=== PATIENT | male | born 1975 | race Caucasian/White ===

== ENCOUNTER 2018-02-28 10:44 | Emergency (ER) | payer BC ==
[~2018-02-28] VITALS: Ht 177.8 cm; Wt 83.9 kg
[2018-02-28] MEDS ORDERED: IBUPROFEN600 MG PO (11:09)
[2018-02-28] MEDS ORDERED: KEFLEX500 MG PO (11:09)
[2018-02-28] MEDS ORDERED: NORCO 5-325 TA1 EACH PO (11:09)
== END 2018-02-28 12:30 | disposition home or self-care (01) ==
LOC: ED 10:44
DX: S42.002A Fracture of unspecified part of left clavicle, initial encounter for closed fracture (principal); S81.012A Laceration without foreign body, left knee, initial encounter; Z23 Encounter for immunization; V29.9XXA Motorcycle rider (driver) (passenger) injured in unspecified traffic accident, initial encounter
CPT/HCPCS: 70450; 71046; 73000; 90471; 90715; 99284

== ENCOUNTER 2018-03-10 06:50 | Day surgery (SDC) | payer BC ==
[~2018-03-10] VITALS: Ht 177.8 cm; Wt 83.9 kg
[~2018-03-10 06:50] MED LIST: IBUPROFEN600 MG PO; KEFLEX500 MG PO; NORCO 5-325 TA1 EACH PO
[2018-03-10] MEDS ORDERED: NORCO 5-325 TA1 EACH PO (07:31)
[2018-03-10] MEDS ORDERED: SENNA LAX8.6 MG PO (10:18)
[2018-03-10] MEDS ORDERED: OXYCODONE HCL5 MG PO (10:18)
[2018-03-10] MEDS ORDERED: NEURONTIN300 MG PO (10:18)
--- NOTE | 2018-03-10 11:25 | NUR ---
03/10/18 1125 Emilie Morrison 1019- PT ARRIVES TO PACU ON 10L VIA NC. OXYGEN SAT 100% ON THIS. PT ALSO SNORING. JAW THRUST PERFORMED AND SNORING CLEARED. 1021- JAW THRUST STOPPED. PILLOW ROLLED BEHIND PT'S HEAD AND HEAD REPOSITIONED, SNORING REMAINED CLEAR. OXYGEN SAT REMAINS 100%. 1023- PT MORE AROUSABLE, ANSWERING QUESTIONS. PT IS ABLE TO MOVE ALL FINGERS TO HIS LEFT HAND. 1030- PT IS REPORTING DEEP PAIN TO HIS LEFT SHOULDER. KEEPS REPORTING "IT FEELS WEIRD. LIKE A DEEP PAPER CUT". PT GIVEN MORPHINE FOR THIS. 1036- CRYOCUFF PLACED TO PT'S LEFT SHOULDER WITH PILLOW CASE IN BETWEEN. 1042- PT SITTING UP IN BED DRINKING WATER. TOLERATING WELL. 1048- PT REPORTS THE PAIN MEDICATION IS NOT WORKING, RATES HIS PAIN AN 8/10. PT PROVIDED MORE MORPHINE. 1100- PT REPORTS HIS PAIN TO BE MUCH BETTER, RATES IT A 3/10. 1105- PT RETURNED TO DAY SURGERY ALERT AND ORIENTED.
--- NOTE | 2018-03-10 11:31 | NUR ---
LE 1105 PT RETURNS FROM PACU. PT AWAKE TALKING WITH STAFF. VITALS STABLE. DENIES PAIN AND NAUSEA. REQUESTED COFFEE, GIVEN. NO FURTHER NEEDS AT THIS TIME. DISCHARGE CRITERIA DISCUSSED, PT UNDERSTANDS. CALL LIGHT IN REACH.
--- NOTE | 2018-03-10 12:11 | NUR ---
PATIENT TOLERATING PO INTAKE. LEFT SHOULDER PAIN IS 3/10. PATIENT UP TO AMBULATE TO BATHROOM AND VOID, AMBULATES STEADILY. RIGHT HAND IV IS SALINE LOCKED.
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
== END 2018-03-10 13:00 | disposition home or self-care (01) ==
LOC: DS 06:50
PROVIDERS: Specialist
PROC: 0PSB04Z Reposition Left Clavicle with Internal Fixation Device, Open Approach (ICD-10-PCS; principal; 2018-03-10 08:30)
DX: S42.022A Displaced fracture of shaft of left clavicle, initial encounter for closed fracture (principal); F17.210 Nicotine dependence, cigarettes, uncomplicated; V29.9XXA Motorcycle rider (driver) (passenger) injured in unspecified traffic accident, initial encounter
CPT/HCPCS: 00450; 64415; 73000; 76942; C1713; J0330; J0690; J1100; J1885; J2250; J2270; J2405; J2704; J2765; J3010; J7120

== ENCOUNTER 2021-11-14 09:27 | Emergency (ER) | payer SELFPAY ==
[~2021-11-14] VITALS: Ht 177.8 cm; Wt 83.9 kg
[~2021-11-14 09:27] MED LIST changes: +NEURONTIN300 MG PO; +OXYCODONE HCL5 MG PO; +SENNA LAX8.6 MG PO
[2021-11-14] MEDS ORDERED: PERCOCET 5-3251 EACH PO (11:24)
== END 2021-11-14 11:40 | disposition home or self-care (01) ==
LOC: ED 09:27
DX: K55.069 Acute infarction of intestine, part and extent unspecified (principal); R31.29 Other microscopic hematuria; F17.210 Nicotine dependence, cigarettes, uncomplicated
CPT/HCPCS: 74176; 81001; 99284-25